=== PATIENT | male | born 1980 | race Caucasian/White ===

== ENCOUNTER 2022-11-27 08:36 | Emergency (ER) | payer OTHER ==
[~2022-11-27] VITALS: Ht 170.2 cm; Wt 64.4 kg
--- NOTE | 2022-11-27 08:45 | NUR ---
[facility] WITNESSED SEIZURE FOR ABOUT 1 MINUTE , NO HISTORY , NO TRAUMA.
--- NOTE | 2022-11-27 08:53 | NUR ---
PT IN BED SEIZURE PRECAUTIONS IN PLACE RN AT BEDSIDE. SIDE RAILS ARE UP CONNECTED TO BEDISDE MONITOR O2SAT BP MONITORING.
--- NOTE | 2022-11-27 08:55 | NUR ---
BLOOD SAMPLE OBTAINED
--- NOTE | 2022-11-27 08:55 | NUR ---
ESTABLISHED IV LINE LEFT HAND 20 G , INFUSING WELL
--- NOTE | 2022-11-27 08:56 | NUR ---
EKG DONE BY EMT
[2022-11-27] MEDS ORDERED: IV NS 0.9% 1,000 ML BAG IV ONE (09:00)
[2022-11-27 09:45] LABS: EOSINOPHILS % (AUTO) 1.4 % (0.0-6.0); HEMATOCRIT 36 % (39-51); HEMOGLOBIN 12.2 g/dL (13.5-17.5); LYMPHOCYTES # (AUTO) 0.8 K/uL (0.8-4.8); LYMPHOCYTES % (AUTO) 25.5 % (20.0-44.0); MEAN CORPUSCULAR HGB CONC 34 g/dl (31.0-36.0); MEAN CORPUSCULAR VOLUME 100 fL (80-96); MONOCYTES # (AUTO) 0.5 K/uL (0.1-1.30); NEUTROPHILS # (AUTO) 1.6 K/uL (1.8-8.9); NEUTROPHILS % (AUTO) 54.1 % (43.0-81.0); PLATELET COUNT (AUTO) 119 K/uL (150-450); RED BLOOD CELL COUNT(AUTO) 3.63 MIL/uL (4.5-6.0)
[2022-11-27 09:52] LABS: ALANINE AMINOTRANSFERASE 118 U/L (12-78); ALBUMIN 3.8 g/dL (3.4-5.0); ALKALINE PHOSPHATASE 104 U/L (46-116); ASPARTATE AMINOTRANSFERASE 54 U/L (15-37); BILIRUBIN,DIRECT 0.3 mg/dL (0.0-0.2); BILIRUBIN,TOTAL 0.5 mg/dL (0.2-1.0); CALCIUM, SERUM 9.1 mg/dL (8.5-10.1); CARBON DIOXIDE 25 mmol/L (21-32); CHLORIDE 98 mmol/L (98-107); CREATININE 0.9 mg/dL (0.6-1.3); POTASSIUM 3.4 mmol/L (3.5-5.1); SODIUM SERUM 135 mmol/L (136-145); TOTAL PROTEIN, SERUM 7.6 g/dL (6.4-8.2); UREA NITROGEN, BLOOD 6 mg/dL (7-18)
[2022-11-27 09:58] LABS: GLUCOSE 361 mg/dL (74-106)
[2022-11-27 09:59] LABS: ALCOHOL, BLOOD < 3 mg/dL (0-0)
[2022-11-27] MEDS ORDERED: IV NS 0.9% 1,000 ML IV ONE (10:30)
--- NOTE | 2022-11-27 11:19 | NUR ---
RONAN HOLLIDAY - PHONE [phone]
--- NOTE | 2022-11-27 11:20 | NUR ---
TO GIVE REPORT TO [facility] [place] TO RECOVERY [phone]
[2022-11-27 12:22] LABS: BASOPHILS % (AUTO) 0.6 % (0.0-2.0); EOSINOPHILS % (AUTO) 0.8 % (0.0-6.0); HEMATOCRIT 40 % (39-51); HEMOGLOBIN 13.3 g/dL (13.5-17.5); LYMPHOCYTES # (AUTO) 0.7 K/uL (0.8-4.8); MEAN CORPUSCULAR HGB CONC 33 g/dl (31.0-36.0); MEAN CORPUSCULAR VOLUME 100 fL (80-96); MONOCYTES # (AUTO) 0.6 K/uL (0.1-1.30); MONOCYTES % (AUTO) 19.7 % (2.0-12.0); NEUTROPHILS # (AUTO) 1.8 K/uL (1.8-8.9); NEUTROPHILS % (AUTO) 55.9 % (43.0-81.0); PLATELET COUNT (AUTO) 114 K/uL (150-450); RED BLOOD CELL COUNT(AUTO) 3.98 MIL/uL (4.5-6.0); WHITE BLOOD COUNT (AUTO) 3.2 K/uL (4.3-11.0)
[2022-11-27 12:31] LABS: BILIRUBIN,URINE NEGATIVE (NEGATIVE); COLOR,URINE YELLOW (YELLOW); LEUKOCYTE ESTERASE ,URINE NEGATIVE (NEGATIVE); NITRITE, URINE NEGATIVE (NEGATIVE); PROTEIN,URINE NEGATIVE (NEGATIVE); UGLUCOSE 3+ mg/dL (NEGATIVE); UROBILINOGEN,URINE 0.2 EU/dL (0.2)
[2022-11-27 12:32] LABS: CALCIUM, SERUM 8.4 mg/dL (8.5-10.1); CREATININE 0.6 mg/dL (0.6-1.3); POTASSIUM 3.5 mmol/L (3.5-5.1)
[2022-11-27 12:55] LABS: BACTERIA,URINE None seen /HPF (None Seen); RBC,URINE NONE SEEN /HPF (0-2); SQUAMOUS EPITHELIAL CELL,UR Rare /HPF (None Seen); WBC,URINE 0-2 /HPF (0-3)
--- NOTE | 2022-11-27 13:28 | NUR ---
RONAN [phone] , REQUEST CALL BACK UPON DISCHARGE FOR UPDATE ON PT STATUS
[2022-11-27] MEDS ORDERED: METF-881 PO ×2 (14:51→14:57)
[2022-11-27] MEDS ORDERED: CHLO25CA22 PO ×2 (14:51→14:57)
[2022-11-27] MEDS ORDERED: CHLORDIAZEPOXIDE HCL 25 MG CAPSULE ONE (14:57)
[2022-11-27] MEDS ORDERED: LORAZEPAM INJ 2 MG/ML VIAL ONE (14:58)
[2022-11-27] MEDS ORDERED: CHLORDIAZEPOXIDE HCL 25 MG CAPSULE PO ONE (15:00)
--- NOTE | 2022-11-27 15:28 | NUR ---
Patient discharged to home in stable condition. Written and verbal after care instructions given. Patient verbalizes understanding of instruction.
--- NOTE | 2022-11-27 15:28 | NUR ---
IV removed. Catheter intact and site benign. Pressure and 4x4 applied to site. No bleeding noted.
[2022-11-27] MEDS ORDERED: LORAZEPAM INJ 2 MG/ML VIAL IV ONE (15:30)
--- NOTE | 2022-11-27 15:49 | NUR ---
patient picked up by rehab transport.
[2022-11-27 15:50] VITALS: BP 171/81
== END 2022-11-27 15:51 | disposition home or self-care (01) ==
LOC: ER 08:40
DX: R56.9 Unspecified convulsions (principal); F10.10 Alcohol abuse, uncomplicated; E11.65 Type 2 diabetes mellitus with hyperglycemia; D72.819 Decreased white blood cell count, unspecified; Y90.0 Blood alcohol level of less than 20 mg/100 ml
CPT/HCPCS: 99285; 96374; 96361; 93005; 71045; 70450; 85025 ×2; 80048 ×2; 82010; 83605 ×2; 80076; 81001; 36415; 84484; 82962 ×3; 80320; J2060; J7030 ×2; G0480